=== PATIENT | male | born 1965 | race Caucasian/White ===

== ENCOUNTER 2017-10-11 06:06 | Day surgery (SDC) | payer OTHER ==
[2017-10-10 16:00] VITALS: BP 102/65
[2017-10-10 16:14] LABS: BASOPHILS % (AUTO) 0.7 % (0.0-5.0); EOSINOPHILS % (AUTO) 3.9 % (0.0-8.0); HEMATOCRIT 46.3 % (42-54); LYMPHOCYTES % (AUTO) 31.5 % (21.0-51.0); MEAN CORPUSCULAR HEMOGLOBIN 32.4 pg (27.0-33.0); MEAN CORPUSCULAR VOLUME 95.5 fL (79-99); MONOCYTES % (AUTO) 6.9 % (3.0-13.0); NUCLEATED RED BLOOD CELLS 0.1 % (0.0-0.19); PLATELET COUNT (AUTO) 274 K/uL (130-400); RED BLOOD CELL COUNT(AUTO) 4.85 MIL/uL (4.50-6.20); RED CELL DISTRIBUTION WIDTH 13.2 % (11.0-15.5)
[2017-10-10 16:28] LABS: CREATININE 0.9 mg/dL (0.5-1.5)
[~2017-10-11] VITALS: Ht 182.9 cm; Wt 81.1 kg
[2017-10-11] VITALS (17 sets, daily range): BP systolic 108–151; BP diastolic 65–94
[~2017-10-11 06:06] MED LIST: METF10004 PO
[2017-10-11] MEDS ORDERED: SODIUM CHLORIDE 0.9% 1000ML 1,000 ML IV ONE (07:37)
[2017-10-11] MEDS ORDERED: WATER FOR INJECTION,STERILE 20 ML VIAL IJ ONE (08:00)
[2017-10-11] MEDS: CEFAZOLIN SODIUM 1 GM VIAL IVP ONE ×2 (08:03→09:00)
[2017-10-11] MEDS ORDERED: NAPR-1023 PO (08:18)
[2017-10-11] MEDS ORDERED: METH500T6 PO (08:18)
[2017-10-11] MEDS ORDERED: [UNRECOGNIZED DRUG - OTHER] PO (08:18)
[2017-10-11] MEDS ORDERED: CHOL100018 PO (08:18)
[2017-10-11] MEDS ORDERED: ATOR40TA71 PO (08:18)
[2017-10-11] MEDS ORDERED: PRAZ2CAP2 PO (08:18)
[2017-10-11] MEDS ORDERED: MIRT45TA5 PO (08:18)
[2017-10-11] MEDS ORDERED: GLYCOPYRROLATE 0.2 MG/ML 5 ML VIAL ONE (08:28)
[2017-10-11] MEDS ORDERED: LIDOCAINE PF 2% 5ML ABBOJECT ONE (08:28)
[2017-10-11] MEDS ORDERED: NEOSTIGMINE 5MG/5ML SYR IV ONE (08:28)
[2017-10-11] MEDS ORDERED: DEXAMETHASONE SOD PHOSPHATE 10MG/ML 1ML VIAL ONE (08:28)
[2017-10-11] MEDS ORDERED: MIDAZOLAM HCL 1 MG/ML 2ML VIAL ONE ×2 (08:29→08:49)
[2017-10-11] MEDS ORDERED: FENTANYL CITRATE PF 50 MCG/1 ML 2ML VIAL ONE ×2 (08:30→09:11)
[2017-10-11] MEDS ORDERED: PROPOFOL 10 MG/ML 20ML VIAL IV ONE (08:30)
[2017-10-11] MEDS ORDERED: ROCURONIUM BROMIDE 10MG/1ML 5ML VL ONE (08:57)
[2017-10-11] MEDS ORDERED: CEPH-578 PO (09:40)
[2017-10-11] MEDS ORDERED: TYL3 PO (09:40)
[2017-10-11] MEDS ORDERED: MEPERIDINE-PF 50 MG/ML SYG ONE (10:25)
== END 2017-10-11 11:50 | disposition home or self-care (01) ==
LOC: DAH 06:06
PROVIDERS: ATTEND Orthopaedic Surgery
DX: M94.261 Chondromalacia, right knee (principal); M23.91 Unspecified internal derangement of right knee; E78.5 Hyperlipidemia, unspecified; E11.9 Type 2 diabetes mellitus without complications; M54.5 Low back pain; G89.29 Other chronic pain; R00.0 Tachycardia, unspecified; Z98.890 Other specified postprocedural states; Z79.899 Other long term (current) drug therapy; F17.210 Nicotine dependence, cigarettes, uncomplicated
CPT/HCPCS: 29877; 36415; 80048; 82948 ×2; 85025; A4218; A4606; A4649 ×2; A4930; A6223; J0690; J1100; J2001; J2175; J2250 ×2; J2704; J2710; J3010 ×2; J3490 ×2; J7030

== ENCOUNTER 2019-08-12 07:03 | Day surgery (SDC) | payer OTHER ==
[2019-08-09 11:55] VITALS: BP 118/69
[2019-08-09 12:06] LABS: BASOPHILS % (AUTO) 0.4 % (0.0-5.0); EOSINOPHILS % (AUTO) 0.9 % (0.0-8.0); HEMATOCRIT 45.6 % (42-54); LYMPHOCYTES % (AUTO) 22.9 % (21.0-51.0); MEAN CORPUSCULAR HEMOGLOBIN 32.6 pg (27.0-33.0); MEAN CORPUSCULAR HGB CONC 33.6 g/dL (32.0-36.0); MONOCYTES % (AUTO) 5.8 % (3.0-13.0); NEUTROPHILS % (AUTO) 68.9 % (40.0-77.0); PLATELET COUNT (AUTO) 269 K/uL (130-400); RED CELL DISTRIBUTION WIDTH 12.7 % (11.0-15.5); WHITE BLOOD COUNT (AUTO) 15.7 K/uL (4.8-10.8)
[2019-08-09 12:27] LABS: CREATININE 0.9 mg/dL (0.5-1.5); POTASSIUM 3.9 mmol/L (3.5-5.1)
--- NOTE | 2019-08-09 15:59 | NUR ---
LABS ABNORMAL WBC REPORTED TO DR. ALLAN, ORDERS RECEIVED TO REPEAT CBC AM OF SURGERY
[2019-08-12] VITALS (23 sets, daily range): BP systolic 112–131; BP diastolic 54–82
[~2019-08-12] VITALS: Ht 181.6 cm; Wt 78.0 kg
[2019-08-12] MEDS: CEFAZOLIN SODIUM 1 GM VIAL IVP SCH ×2 (06:00→09:55)
[~2019-08-12 07:03] MED LIST changes: +ATOR40TA71 PO; +CHOL100018 PO; +GLIP10TA9 PO; +METF-446 PO; -METF10004 PO; +METH500T6 PO; +MIRT45TA79 PO; +NAPR-1023 PO; +PRAZ2CAP2 PO; +[UNRECOGNIZED DRUG - OTHER] PO
[2019-08-12] MEDS ORDERED: EPINEPHRINE 1 MG/ML 30ML VIAL IJ ONE (08:20)
[2019-08-12 08:33] LABS: HEMATOCRIT 40.3 % (42-54); MEAN CORPUSCULAR HEMOGLOBIN 32.7 pg (27.0-33.0); MEAN CORPUSCULAR HGB CONC 33.7 g/dL (32.0-36.0); MEAN CORPUSCULAR VOLUME 96.9 fL (79-99); PLATELET COUNT (AUTO) 224 K/uL (130-400); RED BLOOD CELL COUNT(AUTO) 4.16 MIL/uL (4.50-6.20); RED CELL DISTRIBUTION WIDTH 12.8 % (11.0-15.5); WHITE BLOOD COUNT (AUTO) 15.6 K/uL (4.8-10.8)
[2019-08-12 08:53] LABS: EOSINOPHILS % (MANUAL) 1 % (1-6); LYMPHOCYTES % (MANUAL) 24 % (22-44); MAN.DIFF COMMENT-IMPRESSION MANUAL DIFFERENTIAL; MONOCYTES % (MANUAL) 2 % (2-9); PLATELET MORPHOLOGY COMMENT ADEQUATE; REACTIVE LYMPHOCYTES 2 % (0-0); SEGMENTED NEUTROPHILS % 71 % (40-70)
[2019-08-12] MEDS ORDERED: LACTATED RINGERS 1000ML 1,000 ML IV ONE (08:57)
[2019-08-12] MEDS ORDERED: LIDOCAINE PF 2% 5ML ABBOJECT ONE (09:10)
[2019-08-12] MEDS ORDERED: MIDAZOLAM HCL 1 MG/ML 2ML VIAL ONE (09:11)
[2019-08-12] MEDS ORDERED: ROCURONIUM 10MG/1ML SYR 10 MG/ML ML ONE (09:11)
[2019-08-12] MEDS ORDERED: FENTANYL CITRATE PF 50 MCG/1 ML 2ML VIAL ONE (09:11)
[2019-08-12] MEDS ORDERED: PROPOFOL 10 MG/ML 20ML VIAL IV ONE (09:11)
[2019-08-12] MEDS ORDERED: ROPIVACAINE 0.5% 5MG/ML 30ML IJ ONE (09:16)
[2019-08-12] MEDS ORDERED: PHENYLEPHRINE HCL 10 MG/ML 1ML VIAL IV ONE (09:34)
[2019-08-12] MEDS ORDERED: ONDANSETRON HCL 4 MG/2 ML VIAL ONE (11:07)
[2019-08-12] MEDS ORDERED: NEOSTIGMINE 5MG/5ML SYR IV ONE (11:07)
[2019-08-12] MEDS ORDERED: GLYCOPYRROLATE 1 MG/5 ML SYRINGE ONE (11:07)
[2019-08-12] MEDS ORDERED: HYDR-4457 PO (11:43)
[2019-08-12] MEDS ORDERED: NAPR375T6 PO (11:43)
[2019-08-12] MEDS ORDERED: CEPH500B PO (11:43)
[2019-08-12] MEDS ORDERED: IPRATROPIUM/ALBUTEROL SULFATE 3 ML SOLUTION IH ONE (12:45)
--- NOTE | 2019-08-12 13:05 | NUR ---
patient arrived to day patient via stretcher by elizabeth Sandra. patient aaox3, respirations unlabored, vital signs stable. denies any pain at this time. dressing x3 to right shoulder is dry and intact, no bleeding noted. ice pack applied to right arm. right arm in sling.
--- NOTE | 2019-08-12 13:35 | NUR ---
discharge instructions provided to patient and patient's spouse, prescriptions and follow up appointment provided as well. all questions/concerns addressed.
--- NOTE | 2019-08-12 14:10 | NUR ---
patient discharged from facility via wheelchair and assisted into private vehicle driven by spouse.
== END 2019-08-12 14:10 | disposition home or self-care (01) ==
LOC: DAH 07:03
PROVIDERS: ATTEND Orthopaedic Surgery
DX: S46.011A Strain of muscle(s) and tendon(s) of the rotator cuff of right shoulder, initial encounter (principal); X58.XXXA Exposure to other specified factors, initial encounter; Y93.89 Activity, other specified; Y92.89 Other specified places as the place of occurrence of the external cause; Y99.8 Other external cause status; M77.8 Other enthesopathies, not elsewhere classified; M75.51 Bursitis of right shoulder; M19.011 Primary osteoarthritis, right shoulder; G89.29 Other chronic pain; F17.210 Nicotine dependence, cigarettes, uncomplicated; F41.9 Anxiety disorder, unspecified; F32.9 Major depressive disorder, single episode, unspecified; E78.5 Hyperlipidemia, unspecified; E11.9 Type 2 diabetes mellitus without complications; G47.30 Sleep apnea, unspecified; Z79.84 Long term (current) use of oral hypoglycemic drugs; Z98.52 Vasectomy status; Z79.899 Other long term (current) drug therapy; Z98.890 Other specified postprocedural states; Z83.3 Family history of diabetes mellitus; Z82.49 Family history of ischemic heart disease and other diseases of the circulatory system
CPT/HCPCS: 29822; 29824; 29826; 36415 ×2; 64415; 71045; 76942; 80048; 82948 ×2; 85025 ×2; 94640; A4213; A4215; A4221; A4222; A4223; A4565; A4600; A4649 ×3; A4663; A4930; A5120; A6206; G0168; J0171; J0690; J2001; J2250; J2370; J2405; J2704; J2710; J2795; J3010; J3490; J7030; J7120